=== PATIENT | male | born 1955 | race Caucasian/White ===

== ENCOUNTER 2017-01-05 08:04 | Emergency (ER) | payer OTHER ==
[~2017-01-05] VITALS: Ht 149.9 cm; Wt 74.2 kg
--- NOTE | ~2017-01-05 | EKG ---
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
--- NOTE | ~2017-01-05 | EKG ---
[facility] [address] [place] [address] ELECTROCARDIOGRAM REPORT Name: LINDABRADLEY Haile Room #: [facility]P [facility]ITAL[facility]rer[facility] [id number] Admission: 01/05/17 Attend Phys: Discharge: 01/05/17 Date of : 53 Report #: [id number] THIS REPORT FOR: //name// 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
[2017-01-05 08:27] LABS: ABSOLUTE NEUTROPHILS 9.4 thou/uL (1.4-8.2); BASOPHILS 0.7 % (0.0-2.0); EOSINOPHILS 0.8 % (0.0-3.0); HEMATOCRIT 41.8 % (42.0-52.0); HEMOGLOBIN 13.7 gm/dL (14.0-18.0); LYMPHOCYTES 12.5 % (24.0-44.0); MCH 31.9 pg (26.0-34.0); MCHC 32.8 g/dL (28.0-37.0); MCV 97.1 fL (80.0-100.0); MONOCYTES 5.9 % (1.0-8.0); PLATELET COUNT 261 thou/uL (150-400); POLYS 80.1 % (36.0-66.0); RDW 14.4 % (10.5-14.5); WBC 11.7 thou/uL (4.0-11.0)
[2017-01-05 08:31] LABS: URINE BILIRUBIN NEGATIVE (Negative); URINE BLOOD 3+ (Negative); URINE COLOR YELLOW; URINE GLUCOSE-RANDOM* NEGATIVE (Negative); URINE KETONES NEGATIVE (Negative); URINE NITRITE POSITIVE (Negative); URINE PROTEIN (DIPSTICK) 2+ (Negative); URINE UROBILINOGEN 0.2 E.U./dl (0.2-1.0)
[2017-01-05 08:33] LABS: MANUAL DIFF NO
[2017-01-05 08:37] LABS: POTASSIUM 4.6 mmol/L (3.5-5.1)
[2017-01-05 08:45] LABS: BACTERIA >30 Many /HPF (None Seen); CASTS None Seen /LPF (None Seen); CRYSTALS None Seen /LPF (None Seen); SQUAMOUS 0-3 Few /LPF (0-3); URINE RBC >20 Many /HPF (0-2); URINE WBC >25 Many /HPF (0-5)
[2017-01-05 08:46] LABS: WBC CLUMPS Packed (None Seen)
[2017-01-05 08:47] LABS: TROPONIN-I 0.05 ng/mL (<0.04-0.07)
[2017-01-05 11:49] VITALS: BP 103/76
== END 2017-01-05 11:50 | disposition short-term general hospital (02) ==
LOC: ER 08:04
PROVIDERS: Emergency Medicine
DX: A41.9 Sepsis, unspecified organism (principal); N39.0 Urinary tract infection, site not specified; Q90.9 Down syndrome, unspecified; E03.9 Hypothyroidism, unspecified; M50.90 Cervical disc disorder, unspecified, unspecified cervical region

== ENCOUNTER 2019-07-07 08:36 | Emergency (ER) | payer OTHER ==
[~2019-07-07] VITALS: Ht 162.6 cm; Wt 113.4 kg
[~2019-07-07 08:36] MED LIST: ANTI-ITCH28 G1 TOP; ARICEPT 5 MG TAB5 MG PO; ARTIFICIAL TEA1 EACH OPHTHALMIC; ASPIR 8181 MG PO; BISACODYL SUPP10 MG RECTAL; CEROVITE ADVAN1 EACH PO; CLARITIN10 MG PO; DELSYM30 MG/5 M1 PO; DESITIN113 GM TOP; HALLS7.6 MG PO; KEPPRA 500 MG500 M1 PO; MIDODRINE HCL 55 M1 PO; MIRALAX17 GM PO; MOMETASONE FURO30 ML OTIC; OYSTER SHELL C500 MG PO; PROLOPRIM100 MG PO; SIMVASTATIN40 MG PO; SYNTHROID100 MCG PO; TYLENOL325 MG PO; VITAMIN D1000 UNI2 PO
[2019-07-07 09:09] LABS: ABSOLUTE NEUTROPHILS 4.4 thou/uL (1.4-8.2); BASOPHILS 0.5 % (0.0-2.0); EOSINOPHILS 0.4 % (0.0-3.0); HEMATOCRIT 39.3 % (42.0-52.0); HEMOGLOBIN 13.1 gm/dL (14.0-18.0); LYMPHOCYTES 17.7 % (24.0-44.0); MCH 33.1 pg (26.0-34.0); MCHC 33.4 g/dL (28.0-37.0); MCV 99.1 fL (80.0-100.0); MONOCYTES 10.3 % (1.0-8.0); PLATELET COUNT 234 thou/uL (150-400); POLYS 71.1 % (36.0-66.0); RBC 3.97 mil/uL (4.50-6.00); RDW 13.6 % (10.5-14.5); WBC 6.2 thou/uL (4.0-11.0)
[2019-07-07] MEDS ORDERED: TRAZODONE HCL100 MG PO (09:09)
[2019-07-07] MEDS ORDERED: MELATONIN5 MG SUBLING (09:10)
[2019-07-07] MEDS ORDERED: M-DRYL12.5 MG/5 PER TUBE (09:11)
[2019-07-07 09:16] LABS: ANION GAP 6 mmol/L (7-16); BUN 26 mg/dL (7-18); CHLORIDE 99 mmol/L (98-107); CO2 27 mmol/L (21-32); GLUCOSE 110 mg/dL (74-106); POTASSIUM 4.4 mmol/L (3.5-5.1); SODIUM 132 mmol/L (136-145)
[2019-07-07 09:22] LABS: ALBUMIN 2.5 g/dL (3.4-5.0); DIRECT BILIRUBIN < 0.1 mg/dL (<0.1-0.2); SGOT 24 U/L (15-37); SGPT 17 U/L (30-65); TOTAL BILIRUBIN 0.4 mg/dL (<0.1-1.0); TOTAL PROTEIN 7.6 g/dL (6.4-8.2)
[2019-07-07 10:21] LABS: AMP/METHAMP Negative (Negative); BARBITURATES Negative (Negative); BENZODIAZEPINES Negative (Negative); COCAINE Negative (Negative); METHADONE Negative (Negative); OPIATES Negative (Negative); PCP Negative (Negative)
[2019-07-07 10:26] LABS: URINE LEUKOCYTES-REFLEX 3+ (Negative)
[2019-07-07 10:27] LABS: URINE NITRITE-REFLEX NEGATIVE (Negative); URINE PROTEIN (DIPSTICK) 1+ (Negative); URINE UROBILINOGEN 0.2 E.U./dl (0.2-1.0)
[2019-07-07 10:28] LABS: URINE BLOOD 3+ (Negative); URINE KETONES NEGATIVE (Negative)
[2019-07-07 10:29] LABS: URINE BILIRUBIN NEGATIVE (Negative); URINE GLUCOSE-RANDOM* NEGATIVE (Negative)
[2019-07-07 10:30] LABS: URINE COLOR PALE YELLOW; URINE SPECIFIC GRAVITY 1.005 (1.005-1.035)
[2019-07-07 10:31] LABS: URINE CLARITY CLOUDY
[2019-07-07 10:48] LABS: BACTERIA-REFLEX >30 Many /HPF (None Seen); CASTS None Seen /LPF (None Seen); CRYSTALS None Seen /LPF (None Seen); SQUAMOUS 0-3 Few /LPF (0-3); URINE RBC 3-10 Few /HPF (0-2); URINE WBC-REFLEX >25 Many /HPF (0-5)
[2019-07-07] MEDS ORDERED: KEFLEX500 M1 PO (10:59)
[2019-07-07] MEDS ORDERED: KEFLEX250 MG/5 M PO (11:06)
[2019-07-07 11:22] VITALS: BP 144/73
--- NOTE | 2019-07-08 08:26 | EKG ---
[address] [address] ELECTROCARDIOGRAM REPORT Name: LINDABRADLEY Be [facility]: [facility] [id number] Admission: 07/07/19 Attend Phys: Discharge: 07/07/19 Date of : 53 Report #: [id number] THIS REPORT FOR: //name// 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
--- NOTE | 2019-07-08 08:28 | EKG ---
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1955 Requested By: Kari Warren Order Number: [id number] MD: Chau Appiah Measurements Intervals [place] Rate: 96 P: 69 [place]: 133 QRS: 36 QRSD: 80 T: 25 QT: 343 QTc: 434 Interpretive Statements Sinus rhythm Borderline prolonged QT interval Compared to ECG 07/14/2017 10:31:54 No significant change was found Electronically Signed On 07-08-2019 8:27:42 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
== END 2019-07-07 11:35 | disposition home or self-care (01) ==
LOC: ER 08:36
PROVIDERS: Emergency Medicine
DX: N39.0 Urinary tract infection, site not specified (principal); R41.82 Altered mental status, unspecified; R56.9 Unspecified convulsions; E03.9 Hypothyroidism, unspecified; Z87.440 Personal history of urinary (tract) infections